=== PATIENT | male | born 2005 | race Caucasian/White ===

== ENCOUNTER 2024-06-08 22:17 | Emergency (ER) | payer MEDICAID ==
[~2024-06-08] VITALS: Ht 167.6 cm; Wt 94.5 kg
[2024-06-08 22:49] VITALS: BP 130/83; PULSE 113; RESP 19; TEMP 98.1; O2SAT 98
[2024-06-09] MEDS ORDERED: TraMADol HCL 50 MG TABLET PO ONE (02:15)
[2024-06-09] MEDS: CLINDAMYCIN PHOS 150 MG/ML 4 ML VIAL IM ONE (02:50)
[2024-06-09] MEDS: TraMADol HCL 50 MG TABLET PO ONE (02:50)
[2024-06-09] MEDS: LIDOCAINE 1% 10 ML VIAL SQ ONE (02:51)
[2024-06-09] MEDS ORDERED: TRAM50TA5 PO (03:34)
[2024-06-09] MEDS ORDERED: CLIN-142 PO (03:34)
== END 2024-06-09 03:46 | disposition home or self-care (01) ==
LOC: EMS 22:17
DX: L05.91 Pilonidal cyst without abscess (principal); F12.90 Cannabis use, unspecified, uncomplicated
CPT/HCPCS: 10080; 99283; 96372; J3490 ×2

== ENCOUNTER 2024-06-11 18:47 | Emergency (ER) | payer MEDICAID ==
[~2024-06-11] VITALS: Ht 172.7 cm; Wt 90.0 kg
[~2024-06-11 18:47] MED LIST: CLIN-142 PO; TRAM50TA5 PO
[2024-06-11 19:03] VITALS: TEMP 98.8
[2024-06-11 21:33] VITALS: BP 138/71; PULSE 86; RESP 18; O2SAT 100
== END 2024-06-11 21:47 | disposition home or self-care (01) ==
LOC: EMS 18:47
DX: L05.91 Pilonidal cyst without abscess (principal); F12.90 Cannabis use, unspecified, uncomplicated
CPT/HCPCS: 99281; Z7502

== ENCOUNTER 2024-06-14 18:04 | Emergency (ER) | payer MEDICAID ==
[~2024-06-14] VITALS: Ht 175.3 cm; Wt 94.5 kg
[2024-06-14 18:20] VITALS: TEMP 97.6
[2024-06-14 20:11] VITALS: BP 125/67; PULSE 80; RESP 19; O2SAT 99
== END 2024-06-14 20:13 | disposition home or self-care (01) ==
LOC: EMS 18:06
DX: Z48.817 Encounter for surgical aftercare following surgery on the skin and subcutaneous tissue (principal); F12.90 Cannabis use, unspecified, uncomplicated; Z98.890 Other specified postprocedural states
CPT/HCPCS: 99281; Z7502